=== PATIENT | male | born 1995 | race Caucasian/White ===

== ENCOUNTER 2021-05-16 15:56 | Emergency (ER) | payer OTHER ==
[~2021-05-16] VITALS: Ht 177.8 cm; Wt 77.1 kg
--- NOTE | 2021-05-16 15:56 | NUR ---
pt BIB[facility] to bed [facility].
--- NOTE | 2021-05-16 16:01 | NUR ---
Dr. Zheng at pt bedside for further evaluaton.
[2021-05-16 16:05] VITALS: BP 146/88
[2021-05-16] MEDS ORDERED: NALOXONE 0.4 MG/ML VIAL IVP ONE (16:10)
[2021-05-16] MEDS ORDERED: NACL 0.9% 1,000 ML IV ONE (16:10)
--- NOTE | 2021-05-16 16:10 | NUR ---
25 YEAR OLD MALE BIBA FROM [facility] FOR ALOC X YESTERDAY. PER PT HE DID [place] LAST NIGHT AND HAS BEEN ALOC SINCE. PT AOX2 TO NAME, . PT ALERT AND AWAKE, BREATHING EVEN AND UNLABORED, SKIN WARM AND DRY. BED IN LOWEST POSITION, LOCKED, BED RAIL UPX1. PMH - HTN ALLERGIES - NKA
--- NOTE | 2021-05-16 16:24 | NUR ---
ATTEMPTED TO GET IV ACCESS. PT STATES THAT HE DOES NOT WANT IV OR ANY BLOOD DRAWN. PT MADE AWARE HE WILL BE RECEIVING NARCAN, AND STATES THAT HE DOES NOT WANT NARCAN AT ALL. PT VERBALIZES UNDERSTANDING OF IMPORTANCE OF NARCAN IN HIS TREATMENT BUT DOES NOT WANT. ERMD MADE AWARE.
--- NOTE | 2021-05-16 16:52 | NUR ---
PT RESTING WITH EYES CLOSED, BREATHING EVEN AND UNLABORED. NO DISTRESS NOTED. ALL NEEDS MET AT THIS TIME.
--- NOTE | 2021-05-16 19:09 | NUR ---
REPORT GIVEN TO AC LAMAS, TRANSFER OF CARE AT THIS TIME
[2021-05-16] MEDS ORDERED: NALO4SPR NS (19:10)
--- NOTE | 2021-05-16 19:10 | NUR ---
Report received from CYDNEY Hill for continuation of care.
--- NOTE | 2021-05-16 19:16 | NUR ---
Pt resting w/ eyes closed, visible rise and fall of chest. VSS. No acute distress noted.
--- NOTE | 2021-05-16 19:58 | NUR ---
Pt awake to verbal stimulation, pt A/O x 2. Pt able to tell me where he was picked up and name. Pts mumbling and needed continuous verbal stimuli to stay awake. Pt rr even and unlabored. Oxygren 98% on RA. No acute distress noted at this time.
--- NOTE | 2021-05-16 22:15 | NUR ---
PT SLEEPING W/ EYES CLOSED, AROUSABLE TO VERBAL STIMULATION, VSS. VISIBLE RISE AND FALL OF CHEST. NO ACUTE DISTRESS NOTED.
--- NOTE | 2021-05-16 23:00 | NUR ---
PT'S HEART RATE DROPPED TO 40 BPM , RR 7 - ERMD SAID MADE AWARE. PER ERMD ADMINISTER 2MG NARCAN IM STAT.
[2021-05-16] MEDS ORDERED: NALOXONE 0.4 MG/ML VIAL IM ONE (23:10)
[2021-05-16] MEDS ORDERED: NALOXONE PFS 2 MG/2 ML SYR ONE (23:11)
--- NOTE | 2021-05-16 23:30 | NUR ---
PT'S VSS - HR 85 , RR 20 , OXYGEN 98%. PT MORE AWAKE AND ALERT AT THIS TIME. PT CURRENTLY YELLING OUT " I NEED DRUGS."
--- NOTE | 2021-05-17 00:30 | NUR ---
PT VOMITTED X 1 EPISODE . PT PROVIDED W/ EMESIS BAG. VSS. NO ACUTE DISTRESS NOTED.
--- NOTE | 2021-05-17 01:48 | NUR ---
PT AMBULATED TO RESTROOM W/ STEADY GAIT.
--- NOTE | 2021-05-17 02:00 | NUR ---
PT SLEEPING IN BED, LOCKED AND IN LOWEST POSITION, HOB ELEVATED, SIDE RAIL X2 FOR PT SAFETY. VSS. NO ACUTE DISTRESS NOTED.
[2021-05-17] MEDS ORDERED: ONDANSETRON 4 MG ODT ONE (02:19)
[2021-05-17] MEDS ORDERED: ONDANSETRON 4 MG ODT PO ONE (02:20)
[2021-05-17 03:30] VITALS: BP 135/83
--- NOTE | 2021-05-17 04:33 | NUR ---
Pt's eyes closed, visible rise and fall of chest. RR even and unlabored. Bed, locked and in lowest position, side rail x 2 for pt safety. No acute distress noted at this time.
--- NOTE | 2021-05-17 06:00 | NUR ---
d/c with VSS. d/c education given. opportunity to ask questions given and answered. rx of narcan given.
== END 2021-05-17 06:00 | disposition home or self-care (01) ==
LOC: MED 15:56
DX: R41.82 Altered mental status, unspecified (principal); F15.90 Other stimulant use, unspecified, uncomplicated; F11.90 Opioid use, unspecified, uncomplicated; Z79.899 Other long term (current) drug therapy
CPT/HCPCS: 93005; 96372; 99285; J2310; Q0162